=== PATIENT | male | born 1970 | race Caucasian/White ===

== ENCOUNTER → 2016-06-09 | Outpatient (REF) | payer BC | LOC: M LAB REF 14:43 | PROVIDERS: ATTEND Physician Assistant | DX: J03.90 Acute tonsillitis, unspecified (principal) ==

== ENCOUNTER → 2021-01-14 | Outpatient (CLI) | payer BC ==
[2021-01-14 11:52] LABS: BASO % 0.7 % (0.0-1.0); EOS # 0.5 10^3/uL (0.0-0.5); EOS % 9.1 % (0.0-3.0); HEMATOCRIT 43.6 % (42.0-52.0); HEMOGLOBIN 14.4 g/dl (13.5-17.5); LYMPH # 1.8 10^3/uL (1.5-5.0); LYMPH % 31.2 % (24.0-44.0); MEAN CORPUSCULAR HEMOGLOBIN 28.6 pg (27.0-33.0); MEAN CORPUSCULAR VOLUME 86.7 fl (80.0-96.0); MONO # 0.6 10^3/uL (0.0-0.8); MONO % 9.6 % (2.0-8.0); NEUTROPHILS # 2.8 10^3/uL (1.5-8.5); NEUTROPHILS % 49.2 % (36.0-66.0); PLATELET COUNT, AUTOMATED 193 10^3/uL (150-450); RED BLOOD COUNT 5.03 10^6/uL (4.30-6.10); WHITE BLOOD COUNT 5.7 10^3/uL (4.0-10.0)
[2021-01-14 12:13] LABS: ALBUMIN 3.9 GM/DL (3.2-5.2); ALT/SGPT 39 U/L (12-78); BILIRUBIN,TOTAL 0.7 MG/DL (0.2-1.0); BLOOD UREA NITROGEN 16 MG/DL (7-18); CALCIUM LEVEL 9.4 MG/DL (8.5-10.1); CARBON DIOXIDE LEVEL 33 MEQ/L (21-32); CHLORIDE LEVEL 105 MEQ/L (98-107); CREATININE FOR GFR 0.91 MG/DL (0.70-1.30); GLOMERULAR FILTRATION RATE > 60.0 (>56); GLUCOSE, FASTING 100 MG/DL (70-100); POTASSIUM SERUM 4.5 MEQ/L (3.5-5.1); SODIUM LEVEL 138 MEQ/L (136-145); TOTAL PROTEIN 7.9 GM/DL (6.4-8.2); URIC ACID 7.3 MG/DL (3.5-7.2)
--- NOTE | 2021-01-14 15:42 | REP ---
INDICATION: PAIN COMPARISON: None. TECHNIQUE: Four views right foot. FINDINGS: There is no evidence of acute fracture, dislocation, or intrinsic bone disease.There is an accessory ossicle lateral to the cuboid. There is mild joint space narrowing, subchondral sclerosis and cystic change at the 1st metatarsophalangeal joint. There is mild adjacent soft tissue swelling. IMPRESSION: No fracture or dislocation. 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 <Electronically signed by Lawrence Ryan > 01/14/21 [id number]
== END ==
LOC: M WUC 09:48
PROVIDERS: ATTEND Physician Assistant
DX: M79.671 Pain in right foot (principal); M10.071 Idiopathic gout, right ankle and foot